=== PATIENT | female | born 1975 | race Caucasian/White ===

== ENCOUNTER 2023-03-05 12:32 | Emergency (ER) | payer BC ==
[~2023-03-05] VITALS: Ht 162.6 cm; Wt 65.8 kg
[2023-03-05 13:23] VITALS: BP_SYST 135
[2023-03-05 14:01] LABS: BASOPHILS % (AUTO) 0.2 % (0.0-2.0); EOSINOPHILS # (AUTO) 0.1 K/uL (0.0-0.4); EOSINOPHILS % (AUTO) 1.2 % (0.0-4.0); HEMATOCRIT 37.6 % (36-48); HEMOGLOBIN 12.4 g/dL (12.0-16.0); LYMPHOCYTES # (AUTO) 1.4 K/uL (1.0-5.5); MEAN CORPUSCULAR HEMOGLOBIN 30 pg (27-31); MEAN CORPUSCULAR HGB CONC 33 % (32-36); MEAN CORPUSCULAR VOLUME 90 fL (79.0-98.0); MONOCYTES # (AUTO) 0.5 K/uL (0.0-1.0); NEUTROPHILS # (AUTO) 10.7 K/uL (1.8-7.7); NEUTROPHILS % (AUTO) 83.6 % (40.0-70.0); PLATELET COUNT (AUTO) 279 K/uL (130-430); RED BLOOD CELL COUNT(AUTO) 4.18 MIL/uL (4.2-6.2); RED CELL DISTRIBUTION WIDTH 14.2 % (9.0-15.0); WHITE BLOOD COUNT (AUTO) 12.8 K/uL (4.8-10.8)
[2023-03-05 14:17] LABS: ANION GAP 5 (5-15); CALCIUM 8.6 mg/dL (8.4-11.0); CHLORIDE 105 mmol/L (98-107); CREATININE 0.74 mg/dL (0.55-1.30); GFR AFRICAN AMERICAN 108 mL/min (>90); GLUCOSE 148 mg/dL (70-99); UREA NITROGEN, BLOOD 18 mg/dL (8-21)
[2023-03-05 14:21] LABS: ALANINE AMINOTRANSFERASE 69 U/L (12-78); ALBUMIN 3.4 g/dL (3.4-4.8); AMYLASE 45 U/L (0-100); ASPARTATE AMINOTRANSFERASE 67 U/L (10-37); C-REACTIVE PROTEIN QUANT < 0.2 mg/dL (0-0.5); LACTATE DEHYDROGENASE 134 U/L (81-234); LIPASE 155 U/L (73-393); TOTAL BILIRUBIN 0.4 mg/dL (0.0-1.0)
[2023-03-05] MEDS ORDERED: MORPHINE 4 MG INJ. 4 MG/ML VIAL IM ONE (14:30)
[2023-03-05] MEDS ORDERED: IBUP-1969 PO (16:03)
[2023-03-05] MEDS ORDERED: TRAM50TA2 PO (16:03)
[2023-03-05 16:42] VITALS: BP_SYST 130
[2023-03-05] MEDS ORDERED: OMEP20CA15 PO (16:42)
== END 2023-03-05 16:35 | disposition home or self-care (01) ==
LOC: SED 12:32
DX: K80.20 Calculus of gallbladder without cholecystitis without obstruction (principal); R10.13 Epigastric pain; R11.0 Nausea; Z79.899 Other long term (current) drug therapy
CPT/HCPCS: 99285; 74176; 76700; 80053; 82150; 84703; 83615; 83690; 85025; 86140; 84484; 36415; 76376; 96372; 83605; J2270